=== PATIENT | female | born 1950 | race Caucasian/White ===

== ENCOUNTER 2021-05-31 22:18 | Emergency (ER) | payer MEDICARE, OTHER | END 2021-06-01 01:15 | disposition home or self-care (01) | LOC: ERS 22:18 | DX: L76.82 Other postprocedural complications of skin and subcutaneous tissue (principal); R60.0 Localized edema; Z79.899 Other long term (current) drug therapy; I10 Essential (primary) hypertension ==

== ENCOUNTER 2022-04-22 11:04 | Observation (INO) | payer MEDICARE ==
[~2022-04-22 11:04] MED LIST: ISOVUE-370 76%-LOCM 1 ML ONE
[2022-04-22 11:25] LABS: #Basophils 0.1 thou/uL (0.0-0.2); #Eosinphils 0.6 thou/uL (0.0-0.7); #Lymphocytes 1.7 thou/uL (1.20-3.40); #Monocytes 0.6 thou/uL (0.11-0.59); #Neutrophils 7.7 thou/uL (1.40-6.50); %Basophils 0.5 % (0.0-1.0); %Eosinophils 5.8 % (0.0-10.0); %Lymphocytes 16.1 % (21.0-51.0); %Monocytes 5.9 % (0.0-10.0); %Neutrophils 71.7 % (42.0-75.0); Hemoglobin 11.3 g/dL (12.0-16.0); Mean Corpuscular HGB CONC 33.1 g/dL (32.0-36.0); Mean Corpuscular Hemoglobin 33.1 pg (27.0-31.0); Mean Platelet Volume 5.9 fL (7.4-10.4); Platelet Count 767 thou/uL (130-400); RBC Distribution Width 10.7 % (11.5-14.5); Red Blood Cell (RBC) Count 3.42 mill/uL (4.20-5.40); White Blood Cell (WBC) Count 10.8 thou/uL (4.8-10.8)
[2022-04-22 11:41] LABS: ALT (SGPT) 14 U/L (8-55); AST (SGOT) 14 U/L (5-34); Albumin 3.6 g/dL (3.4-4.8); Alkaline Phosphatase 86 U/L (40-110); Anion Gap 14 mmol/L (10-20); BUN (Urea Nitrogen) 35 mg/dL (9.8-20.1); Bilirubin, Total 0.2 mg/dL (0.2-1.2); Calc. Creatinine Clearance 0 mL/min (70-130); Calcium 9.9 mg/dL (7.8-10.44); Carbon Dioxide 26 mmol/L (23-31); Chloride 100 mmol/L (98-107); Estimated GFR 51; Globulin 3.9 g/dL (2.4-3.5); Glucose 66 mg/dL (80-115); Lipase 28 U/L (8-78); Potassium 4.2 mmol/L (3.5-5.1); Protein, Total 7.5 g/dL (5.8-8.1); Sodium 136 mmol/L (136-145)
[2022-04-22] MEDS ORDERED: Morphine 4 MG/ML VIAL ONE (11:52)
[2022-04-22] MEDS ORDERED: cefTRIAXone\\ROCEPHIN 2 GM VIAL ONE (13:19)
[2022-04-22] MEDS ORDERED: Azithromycin 500 MG VIAL ONE (13:47)
[2022-04-22 14:27] LABS: SARS-CoV-2 NAA Rapid Test Not Detected (NotDetected)
[2022-04-22] MEDS ORDERED: Acetaminophen 325 MG TAB PO PRN (14:28)
[2022-04-22] MEDS ORDERED: Senokot S 8.6-50 MG TAB PO PRN (14:28)
[2022-04-22] MEDS ORDERED: Bisacodyl 5 MG TAB PO PRN (14:28)
[2022-04-22] MEDS ORDERED: Ondansetron PF 4 MG/2 ML Vial IVP PRN (14:28)
[2022-04-22] MEDS ORDERED: Enoxaparin Sodium 40 MG/0.4 ML SYRINGE SC SCH (14:30)
[2022-04-22 15:40] VITALS: BMI 24.5
[2022-04-22] MEDS: HYDROcodone/Acetaminophen 5/325 mg Tablet PO PRN ×2 (15:53→20:13)
[2022-04-22] MEDS ORDERED: Mirtazapine 15 MG TAB PO SCH (22:00)
[2022-04-22] MEDS ORDERED: Cyclobenzaprine 10 MG TAB PO SCH (22:00)
[2022-04-22] MEDS ORDERED: hydrOXYzine Pamoate 25 mg Capsule PO SCH (22:00)
[2022-04-23] MEDS: HYDROcodone/Acetaminophen 5/325 mg Tablet PO PRN (07:58)
[2022-04-23] MEDS ORDERED: Enoxaparin Sodium 40 MG/0.4 ML SYRINGE SC SCH (09:00)
[2022-04-23] MEDS ORDERED: Carvedilol 6.25 MG TAB PO SCH (09:00)
[2022-04-23] MEDS ORDERED: Polyethylene Glycol 3350 17 GM Packet PO SCH (09:00)
[2022-04-23] MEDS ORDERED: Azithromycin 500 MG in Sodium Chloride 0.9% 250 ML 250 ML IVPB SCH (12:00)
[2022-04-23 12:10] VITALS: BP 134/84; TEMP 98.4
[2022-04-23] MEDS ORDERED: cefTRIAXone\\ROCEPHIN 1 GM in Sodium Chloride 0.9% 100 ML IVPB SCH (14:00)
[2022-04-23] MEDS ORDERED: hydrOXYzine Pamoate 25 mg Capsule PO SCH (21:00)
[2022-04-23] MEDS ORDERED: Mirtazapine 15 MG TAB PO SCH (21:00)
[2022-04-23] MEDS ORDERED: Cyclobenzaprine 10 MG TAB PO SCH (21:00)
[2022-04-25 14:18] LABS: Albumin-Ur 16.4 % (.); Alpha 1 - Ur 12.1 % (.); Alpha 2 - Ur 22.6 % (.); Beta-Ur 24.5 % (.); Gamma-Ur 24.5 % (.); M-Spike,% Not Observed % (Not Observed); Protein, Urine 30.2 mg/dL (Not Estab.)
[2022-04-25 14:23] LABS: ANA Symphony (Qualitative) Negative (Negative); ANA Symphony (Quantitative) 0.2 Ratio (< 0.7 Negative); Mitochondrial Ab 1.2 U/mL (<4 Negative); Thyroid Peroxidase IgG Ab Less than 4.0 IU/mL (<25 Normal); dsDNA IgG Antibody 1.1 IU/mL (<10 Negative)
[2022-04-25 14:48] LABS: CCP IgG Antibody 2.8 EliAU/mL (<7 Negative); Rheumatoid Factor IgA Antibody 3.8 IU/mL (<14 Negative); Rheumatoid Factor IgM Antibody 0.6 IU/mL (<3.5 Negative)
[2022-04-27 02:38] LABS: QuantiFERON-TB Gold Plus Negative (Negative)
[2022-04-27 16:09] LABS: A. flavus Negative (Neg:<1:1); A. fumigatus Negative (Neg:<1:1); A. niger Negative (Neg:<1:1); Blastomyces AB Negative (Neg:<1:1)
== END 2022-04-23 15:20 | disposition home or self-care (01) ==
LOC: ERS 11:04 → T4-B 13:54
PROVIDERS: ADMIT Internal Medicine; ATTEND Internal Medicine
DX: G89.29 Other chronic pain (principal); M54.50 Low back pain, unspecified; I10 Essential (primary) hypertension; M41.9 Scoliosis, unspecified; R32 Unspecified urinary incontinence; R91.8 Other nonspecific abnormal finding of lung field; R05.9 Cough, unspecified; Z79.1 Long term (current) use of non-steroidal anti-inflammatories (NSAID); Z79.899 Other long term (current) drug therapy; Z98.1 Arthrodesis status; Z20.822 Contact with and (suspected) exposure to COVID-19
CPT/HCPCS: 71045; 71275; 74176; 80053; 83516; 83520; 83605; 83690; 84145; 84166; 84484; 85025; 85652; 86038; 86140; 86160; 86200; 86225; 86376; 86480; 86606 ×3; 86612; 87449; 93005; 94760; 96372; G0378 ×3; U0002; 36415; J0456; J0696; J1650; J2270; Q0177; Q9966